=== PATIENT | female | born 1935 | race Caucasian/White ===

== ENCOUNTER 2016-09-13 11:34 | Inpatient (IN) | payer MEDICARE ==
[~2016-09-13] VITALS: Ht 167.6 cm; Wt 61.8 kg
[2016-09-13] MEDS ORDERED: ESTR1TAB PO (14:44)
[2016-09-13] MEDS ORDERED: AMLO5TAB2 PO (14:44)
[2016-09-13] MEDS ORDERED: VITA2000 PO (14:44)
[2016-09-13] MEDS ORDERED: TRAM50TA PO (14:44)
[2016-09-13] MEDS ORDERED: FOLI800T PO (14:44)
[2016-09-13] MEDS ORDERED: VITATAB43 PO (14:44)
[2016-09-13] MEDS ORDERED: GLUC100017 PO (14:44)
[2016-09-13] MEDS ORDERED: BIOTCAP PO (14:44)
[2016-09-13] MEDS ORDERED: METO25TA3 PO (14:44)
[2016-09-13] MEDS ORDERED: ASPI325T PO (14:44)
[2016-09-13] MEDS ORDERED: ATOR40TA16 PO (14:44)
[2016-09-13] MEDS ORDERED: MULT-207 PO (14:44)
[2016-09-13] MEDS ORDERED: CORACAP PO (14:44)
[2016-09-13] MEDS ORDERED: LISI30TA4 PO (14:44)
[2016-09-13] MEDS ORDERED: MAGN500T5 PO (14:44)
[2016-09-13] MEDS ORDERED: METF500T PO (14:44)
[2016-09-13] MEDS ORDERED: HYDR25TA5 PO (14:44)
[2016-09-26] MEDS ORDERED: CHLORHEXIDINE GLUCONATE 2 % 1 PACK (2 CLOTHS) TOPICAL PRN (05:30)
[2016-09-26] MEDS ORDERED: EXPAREL PERI-ARTICULAR INJECTION (TOTAL VOL. 60 ML) P-ARTICULR SCH ×2 (05:30)
[2016-09-26] MEDS ORDERED: SODIUM CHLORIDE 0.9% IV SCH (05:30)
[2016-09-26] MEDS ORDERED: VANCOMYCIN 1000 MG/NS 250 ML (for <70 kg) IV SCH ×2 (05:30)
[2016-09-26] MEDS ORDERED: INSULIN HUMAN REGULAR 1,000 UNITS/10 ML VIAL SQ PRN (05:30)
[2016-09-26] MEDS ORDERED: SODIUM CHLORID 0.9% 500 ML IV PRN (05:30)
[2016-09-26] MEDS ORDERED: POVIDONE IODINE 5% (ANTISEPSIS KIT) 4 APPLICATIONS EACH NARE PRN (05:30)
[2016-09-26] MEDS ORDERED: CHLORHEXIDINE GLUCONATE 4% SOLN 120 ML BTL TOPICAL SCH (05:30)
[2016-09-26] MEDS ORDERED: TRANEXAMIC ACID IV SCH (05:30)
[2016-09-26] MEDS ORDERED: LACTATED RINGER'S 1000 ML IV PRN (05:30)
[2016-09-26] MEDS ORDERED: ceFAZolin 2 GM PREMIX 50 ML IV SCH (05:30)
[2016-09-26] MEDS ORDERED: METOPROLOL TARTRATE 25 MG TAB PO PRN (05:30)
[2016-09-26 06:15] VITALS: BP 133/68; PULSE 69; RESP 18; TEMP 98.2; O2SAT 99
[2016-09-26] MEDS ORDERED: GENTAMICIN SULFATE 80 MG/2 ML VIAL ONE (06:49)
[2016-09-26] MEDS ORDERED: ACETAMINOPHEN 1000 MG/100 ML VIAL IV ONE (07:09)
[2016-09-26] MEDS ORDERED: XARE10TA PO (07:58)
[2016-09-26] MEDS ORDERED: HYDR-3580 PO (07:58)
[2016-09-26] MEDS ORDERED: WALKER/ADULT/FO1 MIS (07:58)
[2016-09-26] MEDS ORDERED: NALOXONE HCL 0.4 MG/ML AMP IV PRN (09:15)
[2016-09-26] MEDS ORDERED: ACETAMINOPHEN/HYDROcodone 325 MG/10 MG TAB PO PRN (09:15)
[2016-09-26] MEDS ORDERED: SODIUM CHLORIDE 0.9% FLUSH 5 ML FLUSH IVF PRN (09:15)
[2016-09-26] MEDS ORDERED: ONDANSETRON HCL 4 MG/2 ML VIAL IVP PRN (09:15)
[2016-09-26] MEDS ORDERED: Post-op Orders (for Pharmacy) MISC XX ONE (09:15)
[2016-09-26] MEDS ORDERED: MORPHINE SULFATE 4 MG/ML INJ IV PUSH PRN (09:15)
--- NOTE | 2016-09-26 09:17 | PD.OP ---
Operative Report Date of Surgery: Sep 26, 2016 Preoperative Diagnosis: Severe right hip osteoarthritis Postoperative Diagnosis: Procedure: Right total hip arthroplasty by anterior approach Surgeon: Paul Fenton Briquette Maker(s): TRE Wayne PA-C The surgical procedure was assisted by my physician language assistant. My P.A. presence was necessary throughout this case for the manipulation and positioning of the surgical extremity. My P.A. was assisting me throughout the duration of this procedure. The skill set of a physician language assistant was medically necessary to complete this procedure. During the surgical case the surgical pathologist was working at the back table and the physician language assistant was directly assisting me. Operation and Findings: PLAN OF ACTIVITY Weight bear as tolerated. DRAINS: 7-mm TERI drain. IMPLANTS USED DePuy Corail size [8] collared stem with a size 52 Arnett Gription cup and a [36+1.5] metal head. DETAILS OF PROCEDURE: This patient has a long history of hip pain. Patient was found to have severe osteoarthritis. The patient had radiographic evidence of joint space narrowing with oixy-jw-alvv arthritis and osteophytes around the acetabulum as well as the femoral head. There was also some cystic changes. The patient failed conservative treatment with pain medications, anti-inflammatories, physical therapy, assistive devices including a cane, as well as therapeutic injection of the hip. Patient's hip arthritis was limiting his ability to ambulate and perform activities of daily living. The patient wished to proceed with surgery and informed consent was obtained. Operative site was marked. I discussed both posterior approach and anterior approach with the patient and decision was made for anterior approach. Patient was brought to OR and placed on OR table. IV sedation and general anesthesia was administered by anesthesiologist. Patient positioned on a Sammi table and was given IV antibiotics. Time-out procedure was performed. The hip and thigh were prepped with alcohol followed by Hibiclens. The thigh was draped in the usual sterile fashion. Clean Air Suite was used for this procedure. The procedure began with a 5-inch incision over the anterolateral thigh. Subcutaneous tissue was dissected with Bovie. The fascia over the tensa fasciae latae was incised. Care was taken to avoid injury to the lateral femoral cutaneous nerve. The tensor muscle was retracted laterally. Sartorius was retracted medially. Retractors were now placed. The reflected head of the rectus is now elevated. A capsulotomy was performed over the anterior head capsule. Sutures were placed to help retract the capsule. At this point the femoral head and neck were identified. With soft tissue protected, oscillating saw was used to make a cut through the femoral neck, the femoral head was now removed. At this point attention was turned to preparation of the acetabulum. The labrum was excised. The acetabulum was sequentially reamed up to size [52]. A Arnett cup was now placed. Fluoroscopy was used to aid in identification of appropriate version. Cup was fully impacted and found to have excellent fit. Hole eliminator was now placed. The liner was now impacted into the cup. At this point the hip was externally rotated. A hook was placed around the proximal femur. The capsule was released off the lateral and medial femur. The hip was now extended and adducted. Retractors were placed around the proximal femur to allow for exposure. A box osteotome was used to remove the lateral cortex of the femoral neck. A broach was used to help lateralize the prosthesis. Canal finder was used to create a path down the canal. Next, the canal was sequentially broached up to size [8]. This was found to be an excellent fit. Calcar planer was placed. A standard head was placed, and the hip was reduced. The hip was found to have excellent stability with good range of motion. The leg lengths were measured under fluoroscopy and found to be equal compared to preoperatively. Trial broach was removed. The Corail stem was opened. Stem was fully impacted into the proximal femur in appropriate version. The femoral head was placed. The hip was again reduced. Fluoroscopy confirmed excellent alignment of prosthesis. The wound was thoroughly irrigated and capsule was closed with #1 Vicryl. The fascia over the tensor fasciae muscle was closed with #1 Vicryl, subcutaneous tissue was closed with 3-0 Vicryl and the skin was closed with josé miguel and Dermabond skin closure. The capsule layers were injected with a mixture of saline and bupivicaine. Dressings were applied. The patient was transferred to Recovery Room in stable condition. Paul Fenton MD Sep 26, 2016 09:17
[2016-09-26] MEDS ORDERED: fentaNYL CITRATE 250 MCG/5 ML AMP ONE (09:44)
[2016-09-26] MEDS: LACTATED RINGER'S 1000 ML INJ 1,000 ML IV SCH ×2 (09:50→23:30)
[2016-09-26] MEDS ORDERED: TRANEXAMIC ACID INJ 1,000 MG in SODIUM CHLORIDE 0.9% INJ 100 ML IV ONE (10:30)
[2016-09-26] MEDS: KETOROLAC TROMETHAMINE 30 MG/ML (IVP) VIAL IV PUSH SCH ×2 (10:46→21:56)
--- NOTE | 2016-09-26 10:58 | RADRPT ---
EXAM DATE/TIME: 09/26/2016 10:23 [facility] COMPARISON: No previous studies available for comparison. INDICATIONS : Post op right total hip. MEDICAL HISTORY : Unobtainable. SURGICAL HISTORY : Unobtainable. ENCOUNTER: Subsequent ACUITY: 1 day PAIN SCORE: Non-responsive. LOCATION: Right hip FINDINGS: Patient status post right hip arthroplasty placement. Arthropathic components are in anatomic alignme nt. Osseous structures are intact without evidence of acute bony fracture. Surgical drain is in place . Immediate postsurgical features are noted in the right hip soft tissues. CONCLUSION: 1. Status post right hip arthroplasty in anatomic alignment without significant acute bony fracture. Amadeo Sinclair MD on September 26, 2016 at 10:56 Board Certified Radiologist. This report was verified electronically.
[2016-09-26 13:20] VITALS: BP 107/50; PULSE 62; RESP 18; TEMP 95.8; O2SAT 100
[2016-09-26 14:00] VITALS: BP 104/64; PULSE 74; RESP 17; TEMP 94.9; O2SAT 100
--- NOTE | 2016-09-26 14:32 | RADRPT ---
EXAM DATE/TIME: 09/26/2016 08:32 [facility] COMPARISON: No previous studies available for comparison. INDICATIONS : Right total hip replacement. MEDICAL HISTORY : None. SURGICAL HISTORY : None. ENCOUNTER: Initial ACUITY: 1 day PAIN SCORE: Non-responsive. LOCATION: Right Hip. FINDINGS: Two fluoroscopic images are provided. There is a right total hip arthroplasty in place. Components ap pear in normal anatomic alignment. No gross bony fracture. CONCLUSION: 1. Right hip arthroplasty in alignment without gross bony fracture. Amadeo Sinclair MD on September 26, 2016 at 14:29 Board Certified Radiologist. This report was verified electronically.
[2016-09-26] MEDS ORDERED: ePHEDrine/NS 25 MG/5 ML SYR IV ONE (15:36)
[2016-09-26] MEDS ORDERED: PHENYLEPH/NS 1000 MCG/10 ML SYR IV ONE (15:36)
[2016-09-26] MEDS ORDERED: NEOSTIGMINE 3 MG/3 ML SYR IV ONE (15:36)
[2016-09-26] MEDS ORDERED: PROPOFOL 200 MG/20 ML AMP IV ONE (15:36)
[2016-09-26] MEDS ORDERED: LACTATED RINGER'S 1000 ML INJ 1,000 ML IV ONE (15:37)
[2016-09-26] MEDS ORDERED: ONDANSETRON HCL 4 MG/2 ML VIAL IV PUSH ONE (15:37)
[2016-09-26 17:10] VITALS: O2SAT 99
[2016-09-26 20:00] VITALS: BP 109/47; PULSE 79; RESP 16; TEMP 97.2; O2SAT 99
[2016-09-26] MEDS: SODIUM CHLORIDE 0.9% FLUSH 5 ML FLUSH IVF SCH (21:00)
[2016-09-26] MEDS: ATORVASTATIN 40 MG TAB PO SCH (21:45)
[2016-09-26] MEDS: METOPROLOL TARTRATE 25 MG TAB PO SCH (21:45)
[2016-09-26] MEDS: VANCOMYCIN INJ 1,000 MG in SODIUM CHLOR 0.9% 250 ML INJ 250 ML IV SCH (21:46)
[2016-09-26 21:55] VITALS: O2SAT 98
[2016-09-27] VITALS (7 sets, daily range): BP systolic 103–109; BP diastolic 45–51; PULSE 72–89; RESP 16–19; TEMP 97.3–99.5; O2SAT 96–100
[2016-09-27 05:35] LABS: HEMATOCRIT 22.4 % (35.0-46.0); REVIEW FLAG FINAL
--- NOTE | 2016-09-27 06:44 | PD.ORT.PN ---
Subjective Subjective Remarks Resting comfortably. Doing well with physical therapy Objective Vitals Vital Signs Date Time Temp Pulse Resp B/P Pulse Ox O2 Delivery O2 Flow Rate FiO2 09/27/16 03:30 97.9 82 16 107/49 99 09/27/16 00:00 97.8 72 16 103/46 99 09/26/16 21:55 98 Nasal Cannula 1.50 09/26/16 20:00 97.2 79 16 109/47 99 09/26/16 17:10 99 Nasal Cannula 1.50 09/26/16 14:00 94.9 74 17 104/64 100 09/26/16 13:20 95.8 62 18 107/50 100 09/26/16 13:05 62 16 107/53 100 Nasal Cannula 2 09/26/16 12:30 57 16 109/55 100 Nasal Cannula 2 09/26/16 11:27 55 16 129/62 100 Nasal Cannula 2 09/26/16 10:30 55 16 133/63 100 Nasal Cannula 2 09/26/16 10:15 54 16 120/57 100 Nasal Cannula 2 09/26/16 10:00 54 16 115/58 100 Nasal Cannula 2 09/26/16 09:45 67 16 109/53 100 Nasal Cannula 2 09/26/16 09:39 97.5 72 16 110/55 100 Nasal Cannula 2 I/O 09/26/16 09/26/16 09/26/16 09/27/16 09/27/16 09/27/16 07:00 15:00 23:00 07:00 15:00 23:00 Intake Total 1650 ml 480 ml 240 ml Output Total 1110 ml 525 ml 950 ml Balance 540 ml -45 ml -710 ml Intake Oral 400 ml 480 ml 240 ml IV Total 250 ml Other 1000 ml Output Urine Total 500 ml 450 ml 900 ml Drainage Total 110 ml 75 ml 50 ml Estimated Blood Loss 500 ml # Bowel Movements 0 Result Diagram: 09/27/167 09/27/16446 Imaging Last 24 hours Impressions Hip and Pelvis X-Ray 09/26/16911 Signed Impressions: Service Date/Time: September 10:23 - CONCLUSION: 1. Status post right hip arthroplasty in anatomic alignment without significant acute bony fracture. Amadeo Sinclair MD Objective Remarks Right lower extremity: Clean dry dressings intact. Minimal swelling. Mild pain with range of motion of hip, distally intact sensation. Assessment & Plan Assessment and Plan Right total hip arthroplasty anterior approach POD 1 Physical therapy weightbearing as tolerated twice a day Incentive spirometry OSCAR soto and Dave Virgen Plan for discharge to home tomorrow with home health care Follow-up Dr. Fenton or PA in 2 weeks Ernesto Griffith Jr. Sep 27, 2016 06:44
--- NOTE | 2016-09-27 06:45 | HHI.FF ---
Face to Face Verification Diagnosis: (1) Status post total hip replacement, right Physical Therapy Gait training, Safety evaluation Right LE Weight Bearing: WB as tolerated Nursing Dressing Changes: Xeroform (begin adding Xeroform daily starting 10/08/2016), Coverderm/Primapore I have seen patient Adriana Hamilton on 09/27/16. My clinical findings support the need for the requested home health care services because: Limited ability to care for self I certify that my clinical findings support that this patient is homebound because: Post-op weakness Ernesto Griffith Jr. Sep 27, 2016 06:45
[2016-09-27] MEDS: SODIUM CHLORIDE 0.9% FLUSH 5 ML FLUSH IVF SCH ×2 (09:00→20:35)
[2016-09-27] MEDS: HYDROCHLOROTHIAZIDE 25 MG TAB PO SCH (10:04)
[2016-09-27] MEDS: METOPROLOL TARTRATE 25 MG TAB PO SCH ×2 (10:04→20:34)
[2016-09-27] MEDS: metFORMIN HCL 500 MG TAB PO SCH ×3 (10:05→18:41)
[2016-09-27] MEDS: amLODIPine BESYLATE 5 MG TAB PO SCH (10:05)
[2016-09-27] MEDS: FOLIC ACID 1 MG TAB PO SCH (10:05)
[2016-09-27] MEDS: LISINOPRIL 10 MG TAB PO SCH (10:06)
[2016-09-27] MEDS: KETOROLAC TROMETHAMINE 30 MG/ML (IVP) VIAL IV PUSH SCH ×2 (10:06→22:12)
[2016-09-27] MEDS: CHOLECALCIFEROL (VIT D3) 1000 UNIT TAB PO SCH (10:06)
[2016-09-27] MEDS: ENOXAPARIN SODIUM 40 MG/0.4 ML SYRINGE SQ SCH (10:07)
[2016-09-27] MEDS: VANCOMYCIN INJ 1,000 MG in SODIUM CHLOR 0.9% 250 ML INJ 250 ML IV SCH (10:11)
[2016-09-27] MEDS: LACTATED RINGER'S 1000 ML INJ 1,000 ML IV SCH ×2 (12:00→22:12)
[2016-09-27] MEDS: ACETAMINOPHEN/HYDROcodone 325 MG/7.5 MG TAB PO PRN (14:35)
[2016-09-27] MEDS: DOCUSATE SODIUM 100 MG CAP PO SCH (20:34)
[2016-09-27] MEDS: ATORVASTATIN 40 MG TAB PO SCH (20:34)
[2016-09-28] VITALS: BP 100/41; PULSE 80; RESP 16; TEMP 99.8; O2SAT 95
[2016-09-28] MEDS ORDERED: MAGNESIUM HYDROXIDE SUSP 30 ML CUP PO PRN (01:15)
[2016-09-28] MEDS: ACETAMINOPHEN/HYDROcodone 325 MG/7.5 MG TAB PO PRN (06:41)
--- NOTE | 2016-09-28 06:42 | PD.ORT.PN ---
Subjective Subjective Remarks Resting comfortably. Doing well with physical therapy Objective Vitals Vital Signs Date Time Temp Pulse Resp B/P Pulse Ox O2 Delivery O2 Flow Rate FiO2 09/28/16 00:00 99.8 80 16 100/41 95 09/27/16 20:00 99.5 89 16 108/45 96 09/27/16 15:35 97.3 77 19 106/50 98 09/27/16 13:40 100 1.50 09/27/16 11:25 97.6 75 19 109/51 100 09/27/16 07:48 97.7 78 19 109/49 100 I/O 09/27/16 09/27/16 09/27/16 09/28/16 09/28/16 09/28/16 06:59 14:59 22:59 06:59 14:59 22:59 Intake Total 240 ml 500 ml 720 ml 480 ml Output Total 950 ml 130 ml Balance -710 ml 500 ml 590 ml 480 ml Intake Oral 240 ml 500 ml 720 ml 480 ml Output Urine Total 900 ml Drainage Total 50 ml 130 ml # Voids 1 1 1 # Bowel Movements 0 Result Diagram: 09/27/16 0447 09/27/16 044 Imaging Last 24 hours Impressions Hip and Pelvis X-Ray 09/26/16 0912 Signed Impressions: Service Date/Time: September 10:23 - CONCLUSION: 1. Status post right hip arthroplasty in anatomic alignment without significant acute bony fracture. Amadeo Sinclair MD Objective Remarks Right lower extremity: Clean dry dressings intact. Minimal swelling. Mild pain with range of motion of hip, distally intact sensation. Assessment & Plan Assessment and Plan Right total hip arthroplasty anterior approach POD 2 Physical therapy weightbearing as tolerated twice a day Incentive spirometry OSCAR brittany and SCDs Lovenox Plan for discharge to home today with home health care Follow-up Dr. Fenton or PA in 2 weeks Ernesto Griffith Jr. Sep 28, 2016 06:42
[2016-09-28 07:32] VITALS: BP 109/45; PULSE 86; RESP 18; TEMP 98.8; O2SAT 91
[2016-09-28] MEDS: SODIUM CHLORIDE 0.9% FLUSH 5 ML FLUSH IVF SCH (09:00)
[2016-09-28] MEDS ORDERED: ESTRADIOL 1 MG TAB PO SCH (09:00)
[2016-09-28] MEDS: METOPROLOL TARTRATE 25 MG TAB PO SCH (09:30)
[2016-09-28] MEDS: ENOXAPARIN SODIUM 40 MG/0.4 ML SYRINGE SQ SCH (09:30)
[2016-09-28] MEDS: CHOLECALCIFEROL (VIT D3) 1000 UNIT TAB PO SCH (09:30)
[2016-09-28] MEDS: DOCUSATE SODIUM 100 MG CAP PO SCH (09:30)
[2016-09-28] MEDS: HYDROCHLOROTHIAZIDE 25 MG TAB PO SCH (09:30)
[2016-09-28] MEDS: LISINOPRIL 10 MG TAB PO SCH (09:31)
[2016-09-28] MEDS: metFORMIN HCL 500 MG TAB PO SCH (09:31)
[2016-09-28] MEDS: amLODIPine BESYLATE 5 MG TAB PO SCH (09:31)
[2016-09-28] MEDS: FOLIC ACID 1 MG TAB PO SCH (09:31)
[2016-09-28 09:54] VITALS: O2SAT 95
[2016-09-28 10:52] LABS: HEMATOCRIT 24.7 % (35.0-46.0); REVIEW FLAG FINAL
[2016-09-28 11:30] VITALS: BP 101/45; PULSE 74; RESP 18; TEMP 97.4; O2SAT 99
[2016-09-28] MEDS: LACTATED RINGER'S 1000 ML INJ 1,000 ML IV SCH (13:00)
== END 2016-09-28 14:28 | disposition home health service (06) | DRG 470 ==
LOC: HSDI 09-26 05:11 → N06A 09-26 13:19
PROVIDERS: ADMIT Orthopaedic Surgery Orthopaedic Trauma; ATTEND Orthopaedic Surgery Orthopaedic Trauma
PROC: 0SR90JA Replacement of Right Hip Joint with Synthetic Substitute, Uncemented, Open Approach (ICD-10-PCS; principal; 2016-09-26 07:05)
DX: M16.11 Unilateral primary osteoarthritis, right hip (principal)
CPT/HCPCS: 73501; 73502; 76000; 82565; 82948; 85014; 85018; 86850; 86900; 86901; 94150; C1776; C9290; J0131; J0690; J1580; J1650; J1885; J2370; J2405; J2710; J3010; J3370; J7050; J7120

== ENCOUNTER → 2016-09-13 | Outpatient (CLI) | payer MEDICARE ==
[~2016-09-13] MED LIST: AMLO10; AMLO5TAB2 PO; ASPI325T PO; ATEN1TAB73; ATOR20TA42; ATOR40TA16 PO; BIOTCAP PO; CORACAP PO; ESTR1; ESTR1TAB PO; FOLI800T PO; GLUC100017 PO; GLUCTAB; HYDR-2768; HYDR-3580 PO; HYDR25TA5 PO; LISI30TA4 PO; MAGN500T5 PO; METF500T PO; METO25TA3 PO; MULT-207 PO; PRIN20TA2; TRAM50TA PO; VITA2000 PO; VITATAB43 PO; WALKER/ADULT/FO1 MIS; XARE10TA PO
[2016-09-13 12:58] LABS: AUTOMATED NEUTROPHIL # 3.8 TH/MM3 (1.8-7.7); BASOPHIL % 0.4 % (0.0-2.0); EOSINOPHIL % 0.1 % (0.0-4.0); HEMATOCRIT 31.8 % (35.0-46.0); HEMO FLAGS DIFF FINAL; LYMPH % 27.5 % (9.0-44.0); LYMPHOCYTE # 1.6 TH/MM3 (1.0-4.8); MEAN CELL VOLUME 89.5 FL (80.0-100.0); MEAN CORPUSCULAR HEMOGLOBIN 28.7 PG (27.0-34.0); MEAN CORPUSCULAR HGB CONC 32.1 % (32.0-36.0); MONO % 7.7 % (0.0-8.0); NEUT % 64.3 % (16.0-70.0); PLATELET COUNT 232 TH/MM3 (150-450); RED BLOOD COUNT 3.55 MIL/MM3 (4.00-5.30); RED CELL DISTRIBUTION WIDTH 14.4 % (11.6-17.2)
[2016-09-13 13:02] LABS: BLOOD, URINE NEG (NEG); COMMENT (UR) CULT NOT INDICATED; CULTURE IF INDICATED CULT NOT INDICATED; GLUCOSE,URINE NEG (NEG); KETONE, URINE NEG (NEG); MUCUS URINE FEW /lpf (OCC); NITRITE,URINE NEG (NEG); SQUAMOUS EPITHELIAL CELL URINE 1 /hpf (0-5); URINE COLOR LIGHT-YELLOW (YELLW/STRAW)
[2016-09-13 13:06] LABS: APTT (PATIENT) 23.1 SEC (24.3-30.1); INTERNATIONAL NORMALIZED RATIO 0.9 RATIO; PROTHROMBIN TIME - PATIENT 9.8 SEC (9.8-11.6)
[2016-09-13 13:31] LABS: BICARBONATE 33.2 MEQ/L (21.0-32.0); POTASSIUM 3.8 MEQ/L (3.5-5.1)
--- NOTE | 2016-09-13 13:34 | RADRPT ---
EXAM DATE/TIME: 09/13/2016 13:12 [facility] COMPARISON: No previous studies available for comparison. INDICATIONS : Evaluate for penumonia, pneumothorax, or communicable disease. Pre op for right total hip replacement . MEDICAL HISTORY : Hypertension. Diabetic. SURGICAL HISTORY : Hysterectomy. Breast biopsy. ENCOUNTER: Initial ACUITY: 1 day PAIN SCORE: 0/10 LOCATION: chest FINDINGS: PA and lateral views of the chest demonstrate the lungs to be symmetrically aerated without evidence of mass, infiltrate or effusion. The cardiomediastinal contours are unremarkable. There is evidence of previous cardiothoracic surgery. Osseous structures are intact. There are degenerative changes of the thoracic spine CONCLUSION: No acute intrathoracic disease. Mata Bright MD on September 13, 2016 at 13:32 Board Certified Radiologist. This report was verified electronically.
--- NOTE | 2016-09-14 16:58 | EKG ---
Date Performed: 09/13/2016 Time Performed: 11:59:17 PTAGE: 81 years EKG: Sinus rhythm WITH OCCASIONAL SUPRAVENTRICULAR PREMATURE COMPLEXES BORDERLINE ECG Compared to the PREVIOUS TRACING from 11/20/06, no significant change DOCTOR: Hernandez Rodas Interpretating Date/Time 09/14/2016 16:57:45
== END ==
LOC: CPRE 12:56
PROVIDERS: ATTEND Orthopaedic Surgery Orthopaedic Trauma
DX: Z01.810 Encounter for preprocedural cardiovascular examination (principal); Z01.811 Encounter for preprocedural respiratory examination; Z01.812 Encounter for preprocedural laboratory examination; Z01.818 Encounter for other preprocedural examination; Z96.60 Presence of unspecified orthopedic joint implant; Z13.9 Encounter for screening, unspecified; Z79.01 Long term (current) use of anticoagulants; R94.31 Abnormal electrocardiogram [ECG] [EKG]; M79.609 Pain in unspecified limb
CPT/HCPCS: 36415; 71020; 80048; 81001; 85025; 85610; 85730; 93005

== ENCOUNTER 2017-12-23 07:24 | Inpatient (IN) ==
[2017-12-23] MEDS ORDERED: TRANEXAMIC ACID IV.SIG ONE (08:02)
[2017-12-23] MEDS ORDERED: SODIUM CHLOR 0.9% IV.SIG ONE (08:02)
[2017-12-23] MEDS ORDERED: Bupivacaine Liposomal PF 1.3% Inj 20 ML Vial INFILTRATN ONE (08:02)
[2017-12-23] MEDS ORDERED: Chlorhexidine Gluconate 2% 1 Pack (2 Cloths) TOPICAL ONE (08:20)
[2017-12-23] MEDS ORDERED: Metoprolol Tartrate 25 MG Tablet PO ONE (08:20)
[2017-12-23] MEDS ORDERED: Celecoxib 200 MG Capsule PO ONE (08:22)
[2017-12-23] MEDS ORDERED: Gabapentin 300 MG Capsule PO ONE (08:22)
[2017-12-23] MEDS ORDERED: Famotidine PF Inj 20 MG/2 ML Vial IV.PUSH ONE (08:22)
[2017-12-23] MEDS ORDERED: Dexamethasone Inj 20 MG/5 ML Vial IV.PUSH ONE (08:22)
[2017-12-23] MEDS ORDERED: Chlorhexidine 4% Topical 120 APPLIC/120 ML Bottle TOPICAL SCH (08:30)
[2017-12-23] MEDS ORDERED: Bupivacaine/Epi PF 0.25% Inj 20 ML, Bupivacaine Liposo PF 1.3% Inj 20 ML, Sodium Chlor ... P-ARTICULR SCH ×2 (08:30)
[2017-12-23] MEDS ORDERED: Sodium Chloride 0.9% 2 ML Flush PRN IV.FLUSH (08:44)
[2017-12-23] MEDS ORDERED: ceFAZolin 2 GM Premix Inj 2 GM/50 ML PIGGYBACK IV.SIG SCH (09:00)
[2017-12-23] MEDS ORDERED: SODIUM CHLOR 0.9% IV.SIG SCH (09:00)
[2017-12-23] MEDS ORDERED: Sodium Chlor 0.9% Inj 500 ML IV.SIG SCH (09:00)
[2017-12-23] MEDS ORDERED: TRANEXAMIC ACID IV.SIG SCH (09:00)
[2017-12-23] MEDS ORDERED: Vancomycin Inj 1,000 MG in Sodium Chlor 0.9% Inj 250 ML IV.SIG SCH (09:00)
[2017-12-23] MEDS ORDERED: Neostigmine Inj 5 MG/5 ML Syringe IV.PUSH ONE (10:19)
[2017-12-23] MEDS ORDERED: Glycopyrrolate Inj 1 MG/5 ML Syringe IV.PUSH ONE (10:19)
[2017-12-23] MEDS ORDERED: Phenylephrine/NS 1000 MCG/10ML Syringe IV.PUSH ONE (10:19)
[2017-12-23] MEDS ORDERED: Lidocaine PF 1% Inj 5 ML Syringe OTHER ONE (10:19)
[2017-12-23] MEDS ORDERED: Bisacodyl 10 MG Supp RECTAL PRN (12:17)
[2017-12-23] MEDS ORDERED: Promethazine 25 MG Supp RECTAL PRN (12:17)
[2017-12-23] MEDS ORDERED: Post-op Orders (for Pharmacy) OTHER STA (12:17)
[2017-12-23] MEDS ORDERED: Morphine Inj 4 MG/ML Vial IV.PUSH PRN (12:17)
[2017-12-23] MEDS ORDERED: Dextrose 50% in Water 50 ML Vial IV.PUSH PRN (12:21)
--- NOTE | 2017-12-23 12:24 | P.OP ---
Date of procedure: 12/23/17 Procedure: Left total hip arthroplasty by anterior approach Anesthesia: JOAN Surgeon: Paul Fenton MD Elementary Ell Teacher: TRE Wayne PA-C The surgical procedure was assisted by my physician miner assistant. My P.A. presence was necessary throughout this case for the manipulation and positioning of the surgical extremity. My P.A. was assisting me throughout the duration of this procedure. The skill set of a physician miner assistant was medically necessary to complete this procedure. During the surgical case the quality assurance lab technician was working at the back table and the physician miner assistant was directly assisting me. Operation and Findings: PLAN OF ACTIVITY Weight bear as tolerated. IMPLANTS USED DePuy Corail size [10] collared stem with a size [50] [place] Gription cup, [50 /32] Altrx poly liner, and a 32 standard metal head. DETAILS OF PROCEDURE: This patient has a long history of hip pain. Patient was found to have severe osteoarthritis. The patient had radiographic evidence of joint space narrowing with kkvd-[id number] arthritis and osteophytes around the acetabulum as well as the femoral head. There was also some cystic changes. The patient failed conservative treatment with pain medications, anti-inflammatories, physical therapy, assistive devices including a cane, as well as therapeutic injection of the hip. Patient's hip arthritis was limiting his ability to ambulate and perform activities of daily living. The patient wished to proceed with surgery and informed consent was obtained. Operative site was marked. I discussed both posterior approach and anterior approach with the patient and decision was made for anterior approach. Patient was brought to OR and placed on OR table. IV sedation and general anesthesia was administered by anesthesiologist. Patient positioned on a Sammi table and was given IV antibiotics. Time-out procedure was performed. The hip and thigh were prepped with alcohol followed by Hibiclens. The thigh was draped in the usual sterile fashion. Clean Air Suite was used for this procedure. The procedure began with a 5-inch incision over the anterolateral thigh. Subcutaneous tissue was dissected with Bovie. The fascia over the tensa fasciae latae was incised. Care was taken to avoid injury to the lateral femoral cutaneous nerve. The tensor muscle was retracted laterally. Sartorius was retracted medially. Retractors were now placed. The reflected head of the rectus is now elevated. A capsulotomy was performed over the anterior head capsule. Sutures were placed to help retract the capsule. At this point the femoral head and neck were identified. With soft tissue protected, oscillating saw was used to make a cut through the femoral neck, the femoral head was now removed. At this point attention was turned to preparation of the acetabulum. The labrum was excised. The acetabulum was sequentially reamed up to size [50]. A [place] cup was now placed. Fluoroscopy was used to aid in identification of appropriate version. Cup was fully impacted and found to have excellent fit. Hole eliminator was now placed. The liner was now impacted into the cup. At this point the hip was externally rotated. A hook was placed around the proximal femur. The capsule was released off the lateral and medial femur. The hip was now extended and adducted. Retractors were placed around the proximal femur to allow for exposure. A box osteotome was used to remove the lateral cortex of the femoral neck. A broach was used to help lateralize the prosthesis. Canal finder was used to create a path down the canal. Next, the canal was sequentially broached up to size [10]. This was found to be an excellent fit. Calcar planer was placed. A standard head was placed, and the hip was reduced. The hip was found to have excellent stability with good range of motion. The leg lengths were measured under fluoroscopy and found to be equal compared to preoperatively. Trial broach was removed. The Corail stem was opened. Stem was fully impacted into the proximal femur in appropriate version. The femoral head was placed. The hip was again reduced. Fluoroscopy confirmed excellent alignment of prosthesis. The wound was thoroughly irrigated and capsule was closed with #1 Vicryl. The fascia over the tensor fasciae muscle was closed with #1 Vicryl, subcutaneous tissue was closed with 3-0 Vicryl and the skin was closed with josé miguel and Dermabond skin closure. The capsule layers, muscle, and subcutaneous tissue were injected with a mixture of saline and bupivicaine. Dressings were applied. The patient was transferred to Recovery Room in stable condition.
[2017-12-23] MEDS ORDERED: fentaNYL Citrate Inj 100 MCG/2 ML Ampul ONE (12:50)
[2017-12-23] MEDS ORDERED: *morphine SULFATE 4 MG/ML PERIprocedure ONLY ONE (12:56)
[2017-12-23] MEDS ORDERED: *HYDROmorphone PF Inj 1 MG/ML Ampul PERIprocedural Use ONLY ONE (13:18)
[2017-12-23] MEDS ORDERED: Tranexamic Acid Inj 1,000 MG in Sodium Chlor 0.9% Inj 100 ML IV.SIG SCH (14:00)
--- NOTE | 2017-12-23 15:34 | XR ---
EXAM DATE: 12/23/2017 12:00 AM EDT AGE/SEX: 82 years / Female INDICATIONS: Left total hip arthroplasty. CLINICAL DATA: This is the patient's initial encounter. Patient reports that signs and symptoms have been present for 1 day and indicates a pain score of Nonresponsive. MEDICAL/SURGICAL HISTORY: Non-responsive. Non-responsive. COMPARISON: No prior exams available for comparison. FINDINGS: 2 fluoroscopic images of the left hip demonstrate a left hip arthroplasty in anatomic alignment. Osse ous structures appear intact without acute fracture. CONCLUSION: 1. Left hip arthroplasty in anatomic alignment without acute fracture. Electronically signed by: Amadeo Sinclair MD 12/23/2017 3:32 PM EDT
[2017-12-23] MEDS: Insulin NovoLIN Regular Correctional Sugar Inj SQ SCH ×2 (18:30→21:39)
[2017-12-23] MEDS: ceFAZolin Inj 2,000 MG in Sodium Chlor 0.9% Inj 80 ML IV.SIG SCH (19:08)
[2017-12-23] MEDS: Calcium/Vitamin D 250/125 MG Tablet PO SCH (19:11)
[2017-12-23] MEDS: Celecoxib 200 MG Capsule PO SCH (21:38)
[2017-12-23] MEDS: Senna/Docusate Sodium 8.6/50 MG Tablet PO SCH (21:38)
[2017-12-23] MEDS: Metoprolol Tartrate 25 MG Tablet PO SCH (21:39)
[2017-12-23] MEDS ORDERED: Vancomycin Inj 1 GM/200 ML PIGGYBACK IV.SIG SCH (23:00)
[2017-12-24] MEDS: Vancomycin Inj 1,000 MG in Sodium Chlor 0.9% Inj 250 ML IV.SIG SCH ×2 (00:33→14:52)
[2017-12-24] MEDS: ceFAZolin Inj 2,000 MG in Sodium Chlor 0.9% Inj 80 ML IV.SIG SCH ×2 (03:03→09:45)
[2017-12-24] MEDS: Calcium/Vitamin D 250/125 MG Tablet PO SCH ×5 (05:21→19:55)
[2017-12-24 05:27] LABS: Hematocrit 24.4 % (35.0-46.0); Hemoglobin 8.4 gm/dL (11.6-15.3)
--- NOTE | 2017-12-24 06:47 | P.PNOP ---
Subjective Interval history: Sitting in a chair doing well. She has been up and out of bed back and forth to the bathroom. Physical Exam Vital signs: Vital Signs 12/23/17 08:30 12/23/17 12:44 12/23/17 12:45 Temperature 98.1 F 98.5 F Pulse Rate 61 78 76 Respiratory Rate 18 12 12 Blood Pressure 123/54 L 104/51 L 99/52 L Pulse Oximetry 99 98 98 12/23/17 13:00 12/23/17 13:15 12/23/17 13:30 Temperature Pulse Rate 65 60 59 L Respiratory Rate 16 13 11 L Blood Pressure 105/51 L 98/50 L 104/52 L Pulse Oximetry 100 96 100 12/23/17 13:45 12/23/17 14:30 12/23/17 20:00 Temperature 97.4 F L 98.7 F 97.2 F L Pulse Rate 58 L 67 70 Respiratory Rate 13 18 16 Blood Pressure 96/48 L 117/58 L 99/51 L Pulse Oximetry 100 100 97 12/24/17 00:00 12/24/17 04:00 Temperature 97.4 F L 97.2 F L Pulse Rate 68 62 Respiratory Rate 17 16 Blood Pressure 109/53 L 107/54 L Pulse Oximetry 97 97 Intake & Output 12/23/17 12/23/17 12/24/17 06:59 18:59 06:59 Intake Total 1809.075 / 1809.075 200 / 200 Output Total 550 / 550 Balance 1259.075 / 1259.075 200 / 200 Weight 60.5 kg 60 kg Intake: IV 409.075 / 409.075 200 / 200 Ofirmev Inj 1,000 mg In 100 ml 100 / 100 @ 400 mls/hr IV.SIG Q12H CADE Rx #:[id number] Cyklokapron Inj 907.5 MG In NS 109.075 / 109.075 Inj 100 ML @ 200 mls/hr IV.SIG ONCE CADE Rx#:[id number] Vancomycin Inj 1,000 MG In NS 250 / 250 Inj 250 ML @ 250 mls/hr IV.SIG LIVING SUPERVISOR CADE Rx#:[id number] Ancef 2 GM Premix Inj 2 gm In 50 / 50 50 ml @ 100 mls/hr IV.SIG LIVING SUPERVISOR CADE Rx#:[id number] Ancef Inj 2,000 MG In NS Inj 80 100 / 100 ML @ 200 mls/hr IV.SIG Q8H [facility]ADE Rx#:[id number] Anesthesia Amount 1400 / 1400 Output: Urine 400 / 400 Estimated Blood Loss 150 / 150 Other: # Voids 1 Weight On Admission 60.5 kg Narrative: Right lower extremity: Dressing is clean dry and intact with only 1 spot of drainage of approximately 5 mm x 5 mm through the center of the dressing. She has been mild swelling. She has no pain with forward flexion and internal/ external rotation of the hip. She has full range of motion knee and ankle. Distally she has intact sensation with active dorsiflexion and plantar flexion of foot Results - Labs CBC & Chem 7: 12/24/17 04:41 Laboratory Results - last 24 hr 12/23/17 12/23/17 12/23/17 13:08 18:24 21:00 Hgb Hct POC Glucose 136 H 193 H 181 H 12/24/17 04:41 Hgb 8.4 L Hct 24.4 L POC Glucose - Imaging Impressions Hip X-Ray 12/23/17 00:00 CONCLUSION: 1. Left hip arthroplasty in anatomic alignment without acute fracture. Assessment and Plan - Assessment and Plan Left anterior total hip arthroplasty POD 1 Physical therapy weightbearing as tolerated twice daily Leave dressing in place for 5 days then remove with home health care. Being careful to maintain surgical tape over incision Xarelto Incentive spirometry Case management for home health care Potential discharge this afternoon if continuing to progress well. Follow-up with Dr. Vizcaino or PA in 2 weeks
--- NOTE | 2017-12-24 07:18 | P.DCO ---
- Physical Therapy Physical Therapy: Gait training, Safety evaluation Hip: Total hip, Protocol: Left, Progress to weight bearing Right Lower Extremity Weight Bearing: Weight bearing as tolerated Left Lower Extremity Weight Bearing: Weight bearing as tolerated - Nursing Dressing changes: Daily dressing change (Beginning 12/29/2017. Remove outer dressing ensuring that surgical tape remains over incision and intact. Then dress with Primapore over incision and surgical tape. Primapore to be changed every other day.), Coverderm/Primapore - Certification Need for Home Health services: I have seen patient Adriana Frank on 12/24/17. My clinical findings support the need for the requested home health care services because: Need for Home Health Services: Limited mobility due to disease progression Homebound Certification: I certify that my clinical findings support that this patient is homebound because: Homebound Certification: Post-op weakness
[2017-12-24] MEDS: Insulin NovoLIN Regular Correctional Sugar Inj SQ SCH ×3 (08:44→19:54)
[2017-12-24] MEDS ORDERED: BIOTIN 1000 MCG PO SCH (09:00)
[2017-12-24] MEDS ORDERED: GLUCOSAMINE SULFATE 1000 MG PO SCH (09:00)
[2017-12-24] MEDS: Estradiol 1 MG Tablet PO SCH (09:43)
[2017-12-24] MEDS: Potassium Chloride 8 MEQ ER Capsule PO SCH (09:43)
[2017-12-24] MEDS: amLODIPine 5 MG Tablet PO SCH (09:44)
[2017-12-24] MEDS: Lisinopril 10 MG Tablet PO SCH (09:45)
[2017-12-24] MEDS: Sodium Chloride 0.9% 2 ML Flush BID IV.FLUSH SCH ×2 (09:45→20:57)
[2017-12-24] MEDS: Metoprolol Tartrate 25 MG Tablet PO SCH ×2 (09:45→20:57)
[2017-12-24] MEDS: Celecoxib 200 MG Capsule PO SCH ×2 (09:45→20:57)
[2017-12-24] MEDS: Senna/Docusate Sodium 8.6/50 MG Tablet PO SCH ×2 (09:45→20:57)
[2017-12-24] MEDS: Folic Acid 1 MG Tablet PO SCH (09:45)
[2017-12-24] MEDS ORDERED: Rivaroxaban 10 MG Tablet PO SCH (12:00)
[2017-12-25] MEDS: Sodium Chloride 0.9% 2 ML Flush BID IV.FLUSH SCH ×2 (00:04→08:52)
--- NOTE | 2017-12-25 06:47 | P.PNOP ---
Subjective Interval history: Doing extremely well. Looking forward to discharge to home today Physical Exam Vital signs: Vital Signs 12/24/17 08:00 12/24/17 12:00 12/24/17 16:00 Temperature 97.6 F 97.9 F 97.4 F L Pulse Rate 60 65 65 Respiratory Rate 17 17 17 Blood Pressure 102/57 L 103/61 101/49 L Pulse Oximetry 99 100 98 12/24/17 20:00 12/25/17 00:00 12/25/17 04:00 Temperature 97.9 F 97.7 F 97.9 F Pulse Rate 71 68 71 Respiratory Rate 16 16 16 Blood Pressure 109/53 L 115/55 L 118/58 L Pulse Oximetry 96 96 95 Intake & Output 12/24/17 12/24/17 12/25/17 06:59 18:59 06:59 Intake Total 1550 / 1550 2330 / 2330 1340 / 1340 Output Total 550 / 550 Balance 1550 / 1550 1780 / 1780 1340 / 1340 Weight 60 kg 60.4 kg Intake: IV 1550 / 1550 450 / 450 1100 / 1100 LR 1000 mL Inj 1,000 ML @ 80 1000 / 1000 1000 / 1000 mls/hr IV.CONT .[id number] CADE Rx# :[id number] Ofirmev Inj 1,000 mg In 100 ml 100 / 100 100 / 100 100 / 100 @ 400 mls/hr IV.SIG Q12H CADE Rx #:[id number] Vancomycin Inj 1,000 MG In NS 250 / 250 250 / 250 Inj 250 ML @ 250 mls/hr IV.SIG Q12H [facility]ADE Rx#:[id number] Ancef Inj 2,000 MG In NS Inj 80 200 / 200 100 / 100 ML @ 200 mls/hr IV.SIG Q8H CADE Rx#:[id number] Oral 480 / 480 240 / 240 Anesthesia Amount 1400 / 1400 Output: Urine 400 / 400 Estimated Blood Loss 150 / 150 Other: # Voids 1 1 3 Narrative: Left lower extremity: Clean dry dressings intact. Minimal swelling. Active dorsiflexion plantar flexion of foot. Intact distal pulses and good capillary refill Results - Labs CBC & Chem 7: 12/24/17 04:41 Laboratory Results - last 24 hr 12/24/17 12/24/17 12/24/17 08:42 12:32 15:57 POC Glucose 123 H 157 H 112 H 10/17/18 20:02 POC Glucose 141 H Assessment and Plan - Problem List (1) Status post left hip replacement Code(s): Z96.642 - Presence of left artificial hip joint Status: Acute - Assessment and Plan Left anterior total hip arthroplasty POD 2 Physical therapy weightbearing as tolerated twice daily Leave dressing in place for 5 days then remove with home health care. Being careful to maintain surgical tape over incision Xarelto Incentive spirometry Case management for home health care Discharge to home today with home health care Follow-up with Dr. Vizcaino or PA in 2 weeks
[2017-12-25 08:47] VITALS: BP 124/59; PULSE 70; RESP 18; TEMP 98; O2SAT 97
[2017-12-25] MEDS: Senna/Docusate Sodium 8.6/50 MG Tablet PO SCH (08:47)
[2017-12-25] MEDS: Potassium Chloride 8 MEQ ER Capsule PO SCH (08:48)
[2017-12-25] MEDS: Celecoxib 200 MG Capsule PO SCH (08:48)
[2017-12-25] MEDS: amLODIPine 5 MG Tablet PO SCH (08:48)
[2017-12-25] MEDS: Folic Acid 1 MG Tablet PO SCH (08:48)
[2017-12-25] MEDS: Metoprolol Tartrate 25 MG Tablet PO SCH (08:49)
[2017-12-25] MEDS: Lisinopril 10 MG Tablet PO SCH (08:49)
[2017-12-25] MEDS: Estradiol 1 MG Tablet PO SCH (08:49)
[2017-12-25] MEDS: Calcium/Vitamin D 250/125 MG Tablet PO SCH ×2 (08:49→08:53)
[2017-12-25] MEDS: Insulin NovoLIN Regular Correctional Sugar Inj SQ SCH ×2 (08:52)
== END 2017-12-25 10:38 | disposition home health service (06) ==
LOC: HSDI 07:24 → N06 14:18
PROVIDERS: ADMIT Orthopaedic Surgery Orthopaedic Trauma; ATTEND Orthopaedic Surgery Orthopaedic Trauma